=== PATIENT | male | born 1980 | race Caucasian/White ===

== ENCOUNTER 2017-02-20 12:53 | Emergency (ER) | payer OTHER ==
--- NOTE | 2017-02-20 13:29 | ERNOTE ---
Upper Extremity HPI - Narrative Date of Service: 02/20/17 - General Extremities Pain Location: 2nd finger: right, 3rd finger: right, 4th finger: right Time Seen by Provider: 02/20/17 12:57 Source: patient Exam Limitations: no limitations - Immun/Allergies/Home Medications Immunizations: IMMUNIZATION HX Immunizations Up to Date Yes History of Influenza Vaccine Yes Hx Pneumococcal Vaccination No Allergies/Adverse Reactions: Allergies Allergy/AdvReac Type Severity Reaction Status Date / Time No Known Allergies Allergy Unverified 02/20/17 12:56 Home Medications: HOME MEDICATIONS HYDROcodone/ACETAMINOPHEN [[place] 5-325] 1 tab PO Q8H PRN #6 tab 02/20/17 [Last Taken Unknown] - History of Present Illness Narrative: Patient presents to the ED for finger injury. He relates this occurred just [employer]. He was closing a garage door and his fingers of the right hand were caught between the panels. No other injuries. pain tips of fingers. Moderate. Worse with movement and palpation, tips of 2,3,4 digits. No clear acute N/T/W. Right handed. No laceration. Occurred: just prior to arrival Location of Incident: home Severity: moderate Method of Injury: Reports: other - crush Modifying Factors - (Improves): Reports: rest Modifying Factors - (Worsens): Reports: movement Associated Symptoms: Denies: tingling, weakness Other Injuries: Reports: none Prior Treament: Denies: recently seen Review of Systems - Review of Systems Constitutional: Absent: fever - Patient's Past Medical History Patient History - Medical: No pertinent hx Patient History - Cardiac/Respiratory: No pertinent hx Patient History - Cancer: No Hx of Cancer Patient History - Surgical Procedures: No surgical history Patient History - Other: None - Social History Living Situations: home Abuse History: No History of abuse Psych History: No pertinent hx Smoking Status: Never smoker Alcohol Use: none Drug Use: none - Immunizations Immunizations Up to Date: Yes Hx Pneumococcal Vaccination: No History of Influenza Vaccine: Yes Physical Exam - Physical Exam General Appearance: Present: alert, no apparent distress Head Exam: Present: normal inspection Eye Exam: Normal inspection: bilateral Respiratory: Present: no respiratory distress Cardiovascular/Chest: Present: normal peripheral pulses Back Exam: Present: normal range of motion Extremity Exam: Present: other - [place] tips of right 2,3,4th digits. There is minimal subungual hematoma 2,3 digits. Nothing that requires drainage. Nail well adherent. Pain limts exam but no tendon injury noted with seemingly full extension strength and full FDS, FDP. Neurological Exam: Present: alert, no motor/sensory deficits, other - sensation intact all fingers Skin Exam: Present: normal color, warm/dry, other - no laceration ED Progress - Vital Signs Patient's Vital Signs:: I have reviewed the patient's vital signs. Vital Signs: Vital Signs 02/20/17 12:56 Temperature 36.9 C Pulse Rate 69 Respiratory 15 Rate Blood Pressure 139/96 O2 Sat by Pulse 100 Oximetry - X-Ray X-Ray #1 X-Ray: hand Interpretation: Interp. by me X-ray Comments: Not being read by radiology in realtime. No clear acute fracture seen. Will d/ c pending official radiology reading - Progress/Reassessment Chief Complaint: Upper Extremity Injury/Problem Progress Note-Subjective: 02/20/17 13:26 I discussed with the patient that radiology report not available in real time. He understands. No clear fracture. No compartment syndrome. Minimal subungual hematoma. Needs re-check 3-5 days with splint for comfort. I discussed warning signs and reasons to return as well as the need for close f/u. Departure Clinical Impression: Finger injury - Departure Disposition: Home self-care Condition: Stable Instructions: Crush Injury of the Fingers or Toes Additional Instructions: Rest. Splint for confort. Ice. Re-check with your doctor in 3-[address] with pain medications. Return for increased pain, numbness, tingling, weakness or if your condition worsens or changes in any way. Prescriptions: HYDROcodone/ACETAMINOPHEN [Avalon 5-325] 1 tab PO Q8H PRN #6 tab PRN Reason: Pain
[2017-02-20 13:41] VITALS: BP 131/91
== END 2017-02-20 13:30 | disposition home or self-care (01) ==
LOC: ER 12:53
PROC: 2W3EX1Z Immobilization of Right Hand using Splint (ICD-10-PCS; principal; 2017-02-20)
DX: S69.91XA Unspecified injury of right wrist, hand and finger(s), initial encounter (principal); W23.0XXA Caught, crushed, jammed, or pinched between moving objects, initial encounter; Y92.008 Other place in unspecified non-institutional (private) residence as the place of occurrence of the external cause